=== PATIENT | female | born 1995 | race Caucasian/White ===

== ENCOUNTER 2020-01-28 14:45 | Emergency (ER) | payer OTHER ==
[~2020-01-28] VITALS: Ht 165.1 cm; Wt 97.4 kg
[2020-01-28 14:45] VITALS: BP 124/85
--- NOTE | 2020-01-28 15:33 | PHYS DOC ---
Past History Past Medical History: Anxiety, Depression, GERD, UTI Past Surgical History: No Surgical History Smoking: Non-smoker Alcohol Use: None Drug Use: None Adult General Chief Complaint Chief Complaint: FLANK PAIN HPI HPI Patient is a 24 year old female who presents with back pain that started yesterday and progressively worsened today. Patient denies any trauma to the area. Patient states that she has a history of UTI that occurred last year which presented with similar symptoms. Patient denies dysuria, hematuria, or urgency/increased frequency of urination at this time. Patient also denies fevers, chills, body aches, or N/V/D. LMP was on 01/23/20 and she is currently using Nexplanon for control. Review of Systems Review of Systems Constitutional: Denies fever or chills Eyes: Denies redness or eye pain HENT: Denies nasal congestion or sore throat Respiratory: Denies cough or shortness of breath Cardiovascular: Denies chest pain or palpitations GI: Denies abdominal pain, nausea, or vomiting : Denies dysuria or hematuria Musculoskeletal: Reports back pain. Denies joint pain Integument: Denies rash or skin lesions Neurologic: Denies headache, focal weakness or sensory changes Complete systems were reviewed and found to be within normal limits, except as documented in this note. Allergies Allergies Allergies Coded Allergies Type Severity Reaction Last Updated Verified No Known Drug Allergies 11/22/14 No Physical Exam Physical Exam Constitutional: Well developed, well nourished, non-toxic appearance, appears uncomfortable HENT: Normocephalic, atraumatic, oropharynx moist Eyes: PERRL, EOMI, conjunctiva normal, no discharge Neck: Normal range of motion, no tenderness, supple Cardiovascular: Heart rate normal, regular rhythm Lungs & Thorax: Bilateral breath sounds clear to auscultation, no wheezing Abdomen: Soft, no tenderness, no distention, no guarding; no suprapubic pain Skin: Warm, dry, no erythema, no rash Back: Tenderness to palpation of levels T10-T12 with right greater than left, no CVA tenderness Extremities: No tenderness, ROM intact, no edema Neurologic: Alert and oriented X 3, normal motor function, normal sensory function, no focal deficits noted Psychologic: Affect normal, judgment normal Current Patient Data Vital Signs Vital Signs Date Time Temp Pulse Resp B/P (MAP) Pulse Ox O2 Delivery O2 Flow Rate FiO2 01/28/20 14:45 98.6 75 16 124/85 (98) 98 Room Air Lab Results Laboratory Tests Test 01/28/20 15:10 POC Urine HCG, Qualitative hcg negative (Negative) Course & Med Decision Making Course & Med Decision Making Pertinent Lab studies reviewed. (See chart for details) Patient is a 24 year old female who presents with back pain that started yesterday and progressively worsened today while getting out of bed. Patient denies any trauma to the area. Patient had similar symptoms with a UTI last year, but she denies any urinary symptoms (hematuria, dysuria, urgency, frequency) at this time. Patient remained afebrile in the ED. Pain was addressed. Labs were ordered and UA showed moderate bacteria, 20-40 WBCs, and was positive for trichomonas. Urine was negative. Prescriptions were given for Flagy for UTI, Norflex for her back pain, and Keflex for UTI. Patient was instructed on RICE therapy. Patient stable for discharge with outpatient follow-up with PCP. Discussed findings and plan with patient, who acknowledges understanding and agreement. Te[place] Disclaimer Dragon Disclaimer This electronic medical record was generated, in whole or in part, using a voice recognition dictation system. Departure Departure: Impression: Primary Impression: Back pain Additional Impressions: Trichomonal cystitis Urinary tract infection Disposition: 01 HOME, SELF-CARE Condition: STABLE Referrals: BRENT CAREY APRN (PCP) Patient Instructions: Back Pain, Adult, [id number], Trichomoniasis-Brief, Urinary Tract Infection, [id number] Scripts Orphenadrine Citrate (ORPHENADRINE CITRATE) 100 Mg Tablet.er 1 TAB PO BID PRN for MUSCLE PAIN, #14 TAB 0 Refills Prov: AMY ESCOBAR DO 01/28/20 Metronidazole (FLAGYL) 500 Mg Tablet 1 TAB PO BID for Infection, #14 TAB Prov: AMY ESCOBAR DO 01/28/20 Cephalexin (KEFLEX) 500 Mg Capsule 1 CAP PO TID for UTI for 7 Days, #21 CAP 0 Refills Prov: AMY ESCOBAR DO 01/28/20 Problem Qualifiers Primary Impression: Back pain Back pain location: thoracic back pain Chronicity: acute Back pain laterality: right Qualified Codes: M54.6 - Pain in thoracic spine Additional Impressions: Urinary tract infection Urinary tract infection type: acute cystitis Hematuria presence: without hematuria Qualified Codes: N30.00 - Acute cystitis without hematuria AMY ESCOBAR DO Jan 28, 2020 15:33
[2020-01-28] MEDS ORDERED: IBUPROFEN 600 MG TABLET. PO ONE ×2 (15:40→16:00)
[2020-01-28 15:42] LABS: BACTERIA,URINE MOD /HPF (0-FEW); BILIRUBIN,URINE NEG (NEG); CLARITY,URINE CLOUDY; COLOR,URINE YELLOW; GLUCOSE,URINE NEG (NEG); NITRITE,URINE NEG (NEG); UROBILINOGEN,URINE 0.2 mg/dL (0.2 mg/dL); WBC,URINE 20-40 /HPF (0-4)
[2020-01-28 15:43] LABS: SQUAMOUS EPITHELIAL CELL,UR FEW /LPF; TRICHOMONAS,URINE PRESENT
[2020-01-28] MEDS ORDERED: metroNIDAZOLE 500 MG TABLET PO ONE (15:45)
[2020-01-28] MEDS ORDERED: CEPHALEXIN 250 MG CAPSULE PO ONE (15:45)
[2020-01-28] MEDS ORDERED: CEPHALEXIN 250 MG CAPSULE ONE (15:48)
[2020-01-28] MEDS ORDERED: metroNIDAZOLE 500 MG TABLET ONE (15:49)
[2020-01-28] MEDS ORDERED: CEPH-264 PO (15:50)
[2020-01-28] MEDS ORDERED: ORPH-16 PO (15:50)
[2020-01-28] MEDS ORDERED: METR500T PO (15:50)
== END 2020-01-28 16:00 | disposition home or self-care (01) ==
LOC: ER 14:45
DX: A59.03 Trichomonal cystitis and urethritis (principal); M54.6 Pain in thoracic spine; K21.9 Gastro-esophageal reflux disease without esophagitis; Z87.440 Personal history of urinary (tract) infections
CPT/HCPCS: 81001; 81025; 87086; 99284

== ENCOUNTER → 2020-03-01 | Outpatient (CLI) | payer OTHER ==
[~2020-03-01] MED LIST: CEPH-264 PO; METR500T PO; ORPH-16 PO
== END | disposition home or self-care (01) ==
LOC: LAB 07:11
PROVIDERS: ATTEND Nurse Practitioner
DX: Z11.3 Encounter for screening for infections with a predominantly sexual mode of transmission (principal)
CPT/HCPCS: 36415; 87491; 87591